=== PATIENT | female | born 1940 | race Caucasian/White ===

== ENCOUNTER → 2017-11-22 | Outpatient (CLI) | payer MEDICARE, MEDICAID ==
[~2017-11-22] MED LIST: ACE3 PO; ACE500 PO; ACET-3143 GT; ASP325 PO; AUG875 PO; ENO100I SC; FENT1PAT12 TD; FURO-45 PO; GLI2 PO; GLI5 PO; GLIP-137 PO; GLY5 PO; HYDR-3078 PO; IBUP-1618 PO; INSU100C12 SQ; LISI-347 PO; LOR1 GT; LOR5 PO; LOR5/325 PO; LORA-633 PO; MAGN200T7 PO; MEGE40TA19 PO; MET500 PO; METO25TA93 PO; METXR500 PO; MIR PO; MORL PO; MULTIVIT; NAPR220C12 PO; NOVOLINRPT IJ; OMEP-153 PO; ONDA4TAB PO; POTA20TA85 PO; POTA8CAP14 PO; POTA99TA22 PO; PRO5 PO; PROC-35 PO; PROM25SU61 RC; SPIR25TA78 PO; VITB1TAB PO; WAR2 PO; WAR5 PO; WARF2.5T62 PO; [UNRECOGNIZED DRUG - CODE] PO; [UNRECOGNIZED DRUG - CODE] PO; antibiotic PO
[2017-11-22 08:27] LABS: PLATELET COUNT, AUTOMATED 151 K/uL (150-450)
[2017-11-22 08:47] LABS: LDL CHOLESTEROL 105 mg/dl
== END ==
LOC: LAB 08:13
PROVIDERS: ATTEND Nurse Practitioner Psychiatric/Mental Health
DX: E13.65 Other specified diabetes mellitus with hyperglycemia (principal); E78.5 Hyperlipidemia, unspecified; I10 Essential (primary) hypertension
CPT/HCPCS: 36415; 82040; 82247; 82310; 82374; 82435; 82465; 82565; 82947; 83036; 83718; 84075; 84132; 84155; 84295; 84443; 84450; 84460; 84478; 84520; 85025

== ENCOUNTER → 2018-03-18 | Outpatient (CLI) | payer MEDICARE, MEDICAID | LOC: LAB 13:22 | PROVIDERS: ATTEND Nurse Practitioner Psychiatric/Mental Health | DX: E13.65 Other specified diabetes mellitus with hyperglycemia (principal); I10 Essential (primary) hypertension | CPT/HCPCS: 36415; 82040; 82247; 82310; 82374; 82435; 82565; 82947; 83036; 84075; 84132; 84155; 84295; 84450; 84460; 84520 ==

== ENCOUNTER → 2018-10-02 | Outpatient (CLI) | payer MEDICARE, MEDICAID ==
[2018-10-02 08:33] LABS: PLATELET COUNT, AUTOMATED 180 K/uL (150-450)
[2018-10-02 10:52] LABS: LDL CHOLESTEROL 128 mg/dl
== END ==
LOC: LAB 08:18
PROVIDERS: ATTEND Nurse Practitioner Psychiatric/Mental Health
DX: E03.9 Hypothyroidism, unspecified (principal); I10 Essential (primary) hypertension; E78.5 Hyperlipidemia, unspecified; E11.65 Type 2 diabetes mellitus with hyperglycemia
CPT/HCPCS: 36415; 82040; 82247; 82310; 82374; 82435; 82465; 82565; 82947; 83036; 83718; 84075; 84132; 84155; 84295; 84443; 84450; 84460; 84478; 84520; 85025